=== PATIENT | female | born 1965 | race Caucasian/White ===

== ENCOUNTER 2021-02-26 09:30 | Emergency (ER) | payer BC ==
[~2021-02-26 09:30] MED LIST: ALL DAY ALLERGY10 M2 PO; EFFEXOR XR75 MG PO; MIRALAX17 GM PO; NAPROSYN500 MG PO; NORCO 5-325 TA1 EACH PO; PHENTERMINE H37.5 M1 PO; SYNTHROID88 MCG PO; TOPAMAX25 MG PO; VIT D PO
[2021-02-26] MEDS ORDERED: IBUPROFEN800 MG PO (11:16)
== END 2021-02-26 11:30 | disposition home or self-care (01) ==
LOC: ER1 09:30
DX: S99.921A Unspecified injury of right foot, initial encounter (principal); S93.401A Sprain of unspecified ligament of right ankle, initial encounter; E03.9 Hypothyroidism, unspecified; Z79.899 Other long term (current) drug therapy; W19.XXXA Unspecified fall, initial encounter; Y92.009 Unspecified place in unspecified non-institutional (private) residence as the place of occurrence of the external cause
CPT/HCPCS: 73610; 73630; 99283

== ENCOUNTER → 2021-04-20 | Outpatient (CLI) | payer BC ==
[~2021-04-20] MED LIST changes: +IBUPROFEN800 MG PO
== END ==
LOC: EMI 13:00
DX: M25.571 Pain in right ankle and joints of right foot (principal); M25.371 Other instability, right ankle; S92.251A Displaced fracture of navicular [scaphoid] of right foot, initial encounter for closed fracture; M25.471 Effusion, right ankle
CPT/HCPCS: 73721